=== PATIENT | male | born 1955 | race Caucasian/White ===

== ENCOUNTER 2020-08-26 09:04 | Inpatient (IN) | payer OTHER ==
[~2020-08-26] VITALS: Ht 180.3 cm; Wt 116.1 kg
--- NOTE | ~2020-08-26 | CON ---
[address] [address] CONSULTATION Name: REANNA BARTON Room: [address] IN ..#: [id number] Admission: 08/26/20 Attend Phys: Rosa Bradford MD Discharge: Date of : 53 Report #: [id number] THIS REPORT FOR: cc: Raji Mcgrgeor MD, Anthony MD Khosla,Avelino Coelho MD ~ DOC #: [id number] Avelino Braun MD DATE OF CONSULTATION: 08/26/2020 HISTORY OF PRESENT ILLNESS: This is a 65-year-old male patient who was seen by me for evaluation for any neurological etiology for the patient's dizziness. This patient had severe dizziness with walking difficulty as I understand. It started yesterday. There was not much nausea going on. He got some meclizine in the emergency room and that did help him and there was some question of mediastinum widening on the chest x-ray. REVIEW OF SYSTEMS: No history of stroke. He does have a history of hypertension and hyperlipidemia as I understand. He takes medication for that. A 14-point review of system otherwise indicated that he is not complaining of any diplopia. He does have dizziness, but no cardiac, respiratory, GI, , musculoskeletal, constitutional, dermatological, hematological, psychiatric, throat, allergic symptom associated with present symptomatology. PAST MEDICAL HISTORY: Negative for this kind of dizziness. FAMILY HISTORY: Unremarkable. SOCIAL HISTORY: He drinks occasionally and in small amounts. PHYSICAL EXAMINATION: NEUROLOGIC: Indicate he is alert, responsive, able to follow simple and complex commands. His cranial nerve examination 2-12 looks unremarkable except for nystagmus. He does have gaze evoked nystagmus, which does not change direction. There is no meningeal sign. There is no carotid bruit. His position sense is intact. His reflexes are symmetrical. Strength is symmetrical. Tone is symmetrical. No cerebellar sign was noted. I could not look at the patient's fundus. VITAL SIGNS: Blood pressure is 134/81, respirations 16, pulse is 74, temperature is 98.1. LABORATORY DATA: White count is 9.1. He has no thyroid mass. There is no carotid bruit. Pulses are palpable. His vision and hearing looks adequate. There are no dysmorphic features of eyes, [place] [address] CONSULTATION Name: REANNA BARTON Room: [address] IN [facility]#: [id number] Admission: 08/26/20 Attend Phys: Rosa Bradford MD Discharge: Date of : 53 Report #: [id number] IMPRESSION: It is unlikely that there is any neurological etiology for the patient's dizziness. It is probably systemic etiology. I am not sure why his lactic acid is high. Next step in this situation is, he needs an ENT evaluation, but no ENT comes here and that appointment may have to be done as an outpatient and if they agree that the patient's symptoms are ENT pathology, then they can treat accordingly. Otherwise, further workup can be done. He does have some other features like increased lactic acid, I am not sure what the etiology is. Neurologically, I do not think we need to do anything further at this stage and we will sign off and I will suggest looking for systemic as well as ENT pathologist as the next step in the patient's management. He said meclizine did help and from a neurological perspective, meclizine can be continued. MD MARISOL Guthrie/UMESH By: [id number] Braun MD /nt
[2020-08-26 09:15] VITALS: BP 133/84
[2020-08-26] MEDS ORDERED: SIMVASTATIN80 MG PO (09:18)
[2020-08-26] MEDS ORDERED: HYDROCHLOROTH12.5 M1 (09:19)
[2020-08-26] MEDS ORDERED: ALPRAZOLAM XR3 MG (09:19)
[2020-08-26] MEDS ORDERED: NORVASC5 MG (09:19)
[2020-08-26 10:09] LABS: ABSOLUTE BASOPHILS 0.1 thou/uL (0.0-0.2); ABSOLUTE EOSINOPHILS 0.1 thou/uL (0.0-0.7); ABSOLUTE LYMPHOCYTES 0.9 thou/uL (0.8-5.3); ABSOLUTE MONOCYTES 0.4 thou/uL (0.0-1.2); ABSOLUTE NEUTROPHILS 7.6 thou/uL (1.6-8.1); BASOPHILS 0.8 %; EOSINOPHILS 1.1 %; HEMATOCRIT 43.2 % (42.0-52.0); HEMOGLOBIN 14.7 gm/dL (14.0-18.0); LYMPHOCYTES 9.8 %; MCH 30.5 pg (26.0-34.0); MCV 89.5 fL (80.0-100.0); MONOCYTES 4.4 %; MPV 7.8 fl. (7.2-11.1); NUCLEATED RBCS 0 /100WBC; PLATELET COUNT* 266 thou/uL (150-400); POLYS 83.9 %; RBC 4.83 mil/uL (4.50-6.00); RDW-CV 13.2 % (10.5-14.5); WBC 9.1 thou/uL (4.0-11.0)
[2020-08-26 10:19] LABS: CALCIUM 9.1 mg/dL (8.5-10.1); CREATININE 0.8 mg/dL (0.6-1.3); POTASSIUM 3.5 mmol/L (3.5-5.1)
[2020-08-26 10:23] LABS: APTT 23.9 Seconds (25.0-31.3); PROTIME 10.2 Seconds (9.20-11.50)
[2020-08-26 10:30] LABS: ALBUMIN 4.2 g/dL (3.4-5.0); TOTAL BILIRUBIN 0.4 mg/dL (<0.1-1.0)
[2020-08-26 11:16] LABS: URINE BILIRUBIN NEGATIVE (Negative); URINE BLOOD NEGATIVE (Negative); URINE CLARITY CLEAR; URINE COLOR YELLOW; URINE GLUCOSE-RANDOM NEGATIVE (Negative); URINE KETONES NEGATIVE (Negative); URINE LEUKOCYTES-REFLEX 1+ (Negative); URINE NITRITE-REFLEX NEGATIVE (Negative); URINE PROTEIN NEGATIVE (Negative); URINE UROBILINOGEN 0.2 E.U./dl (0.2-1.0)
[2020-08-26 11:21] LABS: SQUAMOUS 0-3 Few /LPF (0-3)
[2020-08-26 11:22] LABS: BACTERIA-REFLEX >30 Many /HPF (None Seen); CASTS None Seen /LPF (None Seen); CRYSTALS None Seen /LPF (None Seen); MUCUS None Seen strn/LPF (None Seen); URINE RBC None Seen /HPF (0-2); URINE WBC-REFLEX 6-15 Few /HPF (0-5)
--- NOTE | 2020-08-26 12:25 | NUR ---
MRI QUESTIONAIRRE GIVEN TO PT TO COMPLETE FOR TESTING.
--- NOTE | 2020-08-26 15:30 | EKG ---
[place] [address] ELECTROCARDIOGRAM REPORT Name: REANNA BARTON Room: [place] [address] ADM IN [facility]#: [id number] Admission: 08/26/20 Attend Phys: Rosa Bradford MD Discharge: Date of : 53 Date of Service: 08/26/20 0957 Report #: [id number] THIS REPORT FOR: //name// [facility] ED Test Date: 2020-08-26 Test Time: 09:57:58 Pat Name: REANNA BARTON Department: Room: [facility] Gender: M Stereotyper: CAROLYN : 1955 Requested By: Shayne Caldera Order Number: [id number] MD: Tim Maxwell Measurements Intervals [place] Rate: 73 P: 45 UT: 157 QRS: 33 QRSD: 113 T: 10 QT: 393 QTc: 433 Interpretive Statements Sinus rhythm Borderline intraventricular conduction delay No previous ECG available for comparison Electronically Signed On 08-26-2020 15:30:19 CDT by Tim Maxwell [email or web address] <ELECTRONICALLY SIGNED> By: Tim Maxwell MD, [facility]GED WITH [facility] 08/26/20 1530 0957 [id number] Tim Maxwell MD, [facility]GED WITH [facility] /EPI
[2020-08-26 15:50] VITALS: BP 119/65
[2020-08-26 16:30] VITALS: BP 119/65
[2020-08-26 16:52] VITALS: BP 134/81
[2020-08-26] MEDS ORDERED: COZAAR 25 MG TA25 M1 PO (17:51)
[2020-08-26] MEDS ORDERED: TRIAMTERENE/HCT1 CA1 PO (17:52)
[2020-08-26] MEDS ORDERED: TRULICITY0.75 MG/0. (17:53)
--- NOTE | 2020-08-26 18:48 | NUR ---
patient resting in room, call light within reach, all items within reach, IV fluids at 100, Room air. No new complaints, just states he feels dizzy. Report to be given to shift leader nurse.
[2020-08-26 19:50] VITALS: BP 111/75
[2020-08-26 20:00] VITALS: BP 111/75
[2020-08-27] VITALS (7 sets, daily range): BP systolic 114–136; BP diastolic 64–81
--- NOTE | 2020-08-27 04:43 | NUR ---
ASSUMED PT CARE AT APPROX. 1915. PT IS A/OX4. VSS. PT IS TRACING SR ON TELEMONITOR. PT IS ON RA. O2 SAT 99%. PT DENIES C/O. FALL PRECAUTIONS IN PLACE FOR SAFETY. HOURLY ROUNDS COMPLETE CHARTED. CALL LIGHT WITHIN REACH. PT CURRENTLY RESTING IN BED. WILL CONT. TO MONITOR.
[2020-08-27 04:45] LABS: HEMATOCRIT 41.8 % (42.0-52.0); HEMOGLOBIN 14.3 gm/dL (14.0-18.0); MCH 30.6 pg (26.0-34.0); MCHC 34.2 g/dL (28.0-37.0); MCV 89.5 fL (80.0-100.0); RBC 4.67 mil/uL (4.50-6.00); RDW-CV 13.8 % (10.5-14.5); WBC 6.6 thou/uL (4.0-11.0)
[2020-08-27 04:50] LABS: CALCIUM 8.9 mg/dL (8.5-10.1); CREATININE 0.9 mg/dL (0.6-1.3); POTASSIUM 3.8 mmol/L (3.5-5.1)
[2020-08-27 04:53] LABS: CHOLESTEROL 163 mg/dL (<200); HDL CHOLESTEROL 31 mg/dL (>40); LDL CHOLESTEROL 64 mg/dL (<100); TC:HDL 5.3 Ratio (Not establshd); TRIGLYCERIDE 344 mg/dL (<150); VLDL 69 mg/dL (<40)
[2020-08-27 05:05] LABS: SERUM ASSESSMENT Clear
--- NOTE | 2020-08-27 13:49 | 2DMMODE ---
[place] [address] 2 D/M-MODE ECHOCARDIOGRAM Name: REANNA BARTON Room: [address] IN [facility]#: [id number] Admission: 08/26/20 Attend Phys: Rosa Bradford MD Discharge: Date of : 53 Date of Service: 08/27/20 1348 Report #: [id number] THIS REPORT FOR: cc: Raji Mcgregor MD, Anthony MD Liston, Michael J. MD [facility] ~ APPROVED REPORT Study performed: 08/27/2020 10:29:34 EXAM: Comprehensive 2D, Doppler, and color-flow Echocardiogram Patient Location: Bedside BSA: 2.32 HR: 78 bpm BP: 123/71 mmHg Other Information Study Quality: Good Indications CVA/TIA Echo Enhancing Agent Indication: Rule out Shunt Agent(s) / Amount(s) Used: Agitated Saline 6 cc 2D Dimensions IVSd: 13.64 (7-11mm) LVOT Diam: 21.81 (18-24mm) LVDd: 46.71 mm PWd: 17.25 (7-11mm) Ascending Ao: 43.87 (22-36mm) LVDs: 31.12 (25-40mm) Aortic Root: 39.40 mm Aortic Valve AoV Peak Jason.: 1.41 m/s AO Peak Gr.: 7.99 mmHg LVOT Max P.39 mmHg AO Mean Gr.: 4.11 mmHg LVOT Mean P.88 mmHg LVOT Max V: 1.16 m/s AO V2 VTI: 24.59 cm LVOT Mean V: 0.79 m/s NADER (VTI): 3.44 cm2 LVOT V1 VTI: 22.61 cm Mitral Valve E/A Ratio: 0.91 [place] [address] 2 D/M-MODE ECHOCARDIOGRAM Name: REANNA BARTON Room: [address] IN [facility]#: [id number] Admission: 08/26/20 Attend Phys: Rosa Bradford MD Discharge: Date of : 53 Date of Service: 08/27/20 1348 Report #: [id number] MV Decel. Time: 229.99 ms MV E Max Jason.: 0.79 m/s MV PHT: 66.70 ms MVA (PHT): 3.30 cm2 TDI E/Lateral E': 9.88 E/Medial E': 7.18 Medial E' Jason.: 0.11 m/s Lateral E' Jason.: 0.08 m/s Pulmonary Valve PV Peak Jason.: 1.01 m/s PV Peak Gr.: 4.04 mmHg Tricuspid Valve RAP Estimate: 20.00 mmHg TR Peak Gr.: 12.91 mmHg RVSP: 32.91 mmHg PA Pressure: 32.91 mmHg Left Ventricle The left ventricle is normal size. There is normal LV segmental wall motion. Mild to moderate concentric left ventricular hypertrophy. Left ventricular systolic function is normal. LVEF is 55-60%. Grade I - abnormal relaxation pattern. Right Ventricle The right ventricle is normal size. The right ventricular systolic function is normal. Atria The left atrium size is normal. Injection of bubbles documented no interatrial shunt. The right atrium size is normal. Aortic Valve The aortic valve is normal in structure. No aortic regurgitation is present. There is no aortic valvular stenosis. Mitral Valve There is mitral annular calcification. There is no mitral valve regurgitation noted. No evidence of mitral valve stenosis. Tricuspid Valve The tricuspid valve is normal in structure. Trace tricuspid regurgitation. Pulmonic Valve The pulmonary valve is normal in structure. There [place] [address] 2 D/M-MODE ECHOCARDIOGRAM Name: REANNA BARTON Room: [address] IN [facility]#: [id number] Admission: 08/26/20 Attend Phys: Rosa Bradford MD Discharge: Date of : 53 Date of Service: 08/27/20 1348 Report #: [id number] valvular regurgitation. Great Vessels Aortic root is borderline dilated. The ascending aorta is mildly dilated. (4.3 cm) IVC is not well visualized. Pericardium There is no pericardial effusion. <Conclusion> The left ventricle is normal size. Mild to moderate concentric left ventricular hypertrophy. Left ventricular systolic function is normal. LVEF is 55-60%. Grade I - abnormal relaxation pattern. There is normal LV segmental wall motion. Injection of bubbles documented no interatrial shunt. Trace tricuspid regurgitation. The ascending aorta is mildly dilated. (4.3 cm) <ELECTRONICALLY SIGNED> By: Ervni Melgoza MD, FACC 08/27/20 1348 Ervin Melgoza MD, FACC /INF
--- NOTE | 2020-08-27 15:18 | NUR ---
PT IS FROM HOME. INDEPENDENT WITH CARES. PT HAS 0 DMES. DENIES HX WITH HH OR SNF. PER CARE TEAM, PT IS HAVING "DIZZY EPISODES." THE PLAN IS D/C HOME WITH HH.
--- NOTE | 2020-08-27 16:16 | NUR ---
PRANAY AVERY Bedside Assessment Note: Referral received as discussed by dr tinoco. Patient a/o, reports only this episode of vertigo and plans follow up with ENT physician. Says lives with who can observe and assist himm if need be. He will be assessed by PT in the morning. Need to f/u on their recommendations. All explained to patient. Will report all to Mckenna Choi
--- NOTE | 2020-08-27 17:39 | NUR ---
PT ALERT AND ORIENTED. PT C/O DIZZINESS AT TIMES. DENIES PAIN. PT CALLS OUT APPROPRIATELY. IV REMAINS S/L. PT HAD FAMILY UP TO SEE PT TODAY.
[2020-08-28 00:17] VITALS: BP 111/56
[2020-08-28 04:55] VITALS: BP 113/53
--- NOTE | 2020-08-28 05:58 | NUR ---
ASSUMED PT CARE AT APPROX. 1915. PT IS A/OX4. VSS. PT IS TRACING SR ON TELEMONITOR. PT IS ON RA. O2 SAT 99%. PT DENIES C/O. NO C/O DIZZINESS W/ AMBULATION TO RR. FALL PRECAUTIONS IN PLACE FOR SAFETY. HOURLY ROUNDS COMPLETE CHARTED. CALL LIGHT WITHIN REACH. PT CURRENTLY RESTING IN BED. WILL CONT. TO MONITOR.
[2020-08-28 08:00] VITALS: BP 136/79
--- NOTE | 2020-08-28 08:43 | NUR ---
RECEIVED REPORT AROUND 0715. ASSUMED CARE. VS AND ASSESSMENT CHARTED. IV INTACT. HEART MONITOR ATTACHED AT SR. PT UP STAND BY ASSIST. PT STATED "A LITTLE" TO ANY DIZZINESS. PT LYING IN BED. NO PAIN THIS AM. CALL LIGHT WITH IN REACH. WILL CONTINUE TO MONITOR.
[2020-08-28] MEDS ORDERED: CEPHALEXIN500 MG PO (08:57)
[2020-08-28] MEDS ORDERED: MECLIZINE HCL25 MG PO (08:57)
[2020-08-28 12:13] VITALS: BP 136/79
[2020-08-28 14:02] VITALS: BP 142/72
--- NOTE | 2020-08-28 14:32 | NUR ---
RECEIVED DISCHARGE ORDERS. CONTACTED PHYSICAL THERAPY TO SEE PT. PHYSICAL THERAPY UNABLE TO SEE PT BEFORE DISCHARGE DUE TO STAFFING. DR ROLDAN TOLD. OK FOR DISCHARGE WITHOUT BEING SEEN BY PHYSICAL THERAPY. IV TAKEN OUT. HEART MONITOR TAKEN OFF. MEDS GIVEN PER MAR. HOURLY ROUNDING PERFORMED. DISCHARGE PACKET GIVEN TO PT. COMMUNICATED UNDERSTANDING. PT LEFT UNIT VIA WHEEL CHAIR WITH NURSING STAFF AND ALL BELONGINGS AT 1432.
--- NOTE | 2020-08-28 14:56 | NUR ---
PLAN FOR PT TO D/C HOME TODAY WITH SELF-SARE. NO CM D/C PLANNING NEEDS ANTICIAPATED. CM WILL REMAIN AVAILABLE TO ASSIST AND FOLLOW NEEDED.
== END 2020-08-28 14:32 | disposition home or self-care (01) | DRG 149 ==
LOC: M.ERS 09:04 → M.2W 11:37 → M.TBA-ER 11:37 → M.2W 16:36
PROVIDERS: Emergency Medicine Emergency Medical Services; ADMIT Family Medicine; ATTEND Family Medicine
DX: H81.10 Benign paroxysmal vertigo, unspecified ear (principal); N39.0 Urinary tract infection, site not specified; I10 Essential (primary) hypertension; E78.5 Hyperlipidemia, unspecified; E11.9 Type 2 diabetes mellitus without complications; E66.9 Obesity, unspecified; Z20.822 Contact with and (suspected) exposure to COVID-19; Z68.35 Body mass index [BMI] 35.0-35.9, adult; Z79.899 Other long term (current) drug therapy